=== PATIENT | male | born 1965 | race Two or more races ===

== ENCOUNTER 2024-09-14 13:03 | Outpatient (RCR) | payer MEDICAID, SELFPAY | END 2024-09-15 23:59 | disposition home or self-care (01) | LOC: SCTC 13:03 | PROVIDERS: PCP Registered Nurse; Referring Provider Registered Nurse; Visit Provider Nurse Practitioner Family | DX: D69.6 Thrombocytopenia, unspecified (principal); E11.9 Type 2 diabetes mellitus without complications; K70.30 Alcoholic cirrhosis of liver without ascites; I85.10 Secondary esophageal varices without bleeding; R16.1 Splenomegaly, not elsewhere classified | CPT/HCPCS: 99212; G0463 ==